=== PATIENT | male | born 1950 | race Caucasian/White ===

== ENCOUNTER 2019-07-20 15:51 | Emergency (ER) | payer OTHER ==
[2019-07-20] MEDS ORDERED: Aspirin 81 mg CHEW TAB* 81 MG TAB.CHEW PO ONE (16:28)
--- NOTE | 2019-07-20 16:32 | UC ---
Cardiac HPI - HPI Summary HPI Summary: 69-year-old male comes in with a chief complaint of chest pain and shortness of breath. Patient woke around 1:30 in the morning he had pressure substernal felt like someone was sitting on his chest. He was able to fall back asleep. He woke up feeling tired and short of breath. During the chest pain he had shortness of breath but no nausea or vomiting or sweating. With the chest pressure he also had some epigastric pain. He does have hypertension. No prior history of any heart attacks. Since he's been awake displacement feeling short of breath he's been having wheezing. - History of Current Complaint Chief Complaint: UCRespiratory Stated Complaint: SOB Time Seen by Provider: 07/20/19 15:57 Pain Intensity: 6 - Allergy/Home Medications Allergies/Adverse Reactions: Allergies Allergy/AdvReac Type Severity Reaction Status Date / Time morphine AdvReac Intermediate Unknown Verified 07/20/19 16:01 Reaction Details Home Medications: Home Medications Alendronate Sodium 70 mg PO WEEKLY 07/20/19 [History Confirmed 07/20/19] Ketoconazole 120 ml TP Q72HR 07/20/19 [History Confirmed 07/20/19] Ketoconazole 2 % CREAM (NF) [Nizoral 2% CREAM (NF)] 1 applic TOPICAL DAILY PRN 07/20/19 [History Confirmed 07/20/19] Omeprazole 40 mg PO BID 07/20/19 [History Confirmed 07/20/19] PMH/Surg Hx/FS Hx/Imm Hx Previously Healthy: Yes Cardiovascular History: Hypertension - Surgical History Surgical History: Yes Surgery Procedure, Year, and Place: Partial Parathyroidectomy, Prostatectomy - Family History Known Family History: Positive: None - Social History Alcohol Use: None Substance Use Type: None Smoking Status (MU): Never Smoked Tobacco Review of Systems All Other Systems Reviewed And Are Negative: Yes Constitutional: Positive: Other - SEE HPI Skin: Positive: Negative Eyes: Positive: Negative ENT: Positive: Negative Respiratory: Positive: Shortness Of Breath Cardiovascular: Positive: Chest Pain Gastrointestinal: Positive: Other - SEE HPI Motor: Positive: Negative Neurovascular: Positive: Negative Musculoskeletal: Positive: Negative Neurological: Positive: Negative Psychological: Positive: Negative Is Patient Immunocompromised?: No Physical Exam Triage Information Reviewed: Yes Appearance: Well-Appearing, No Pain Distress, Well-Nourished Vital Signs: Initial Vital Signs Temp 97.4 F 07/20/19 15:53 Pulse 113 07/20/19 15:53 Resp 22 07/20/19 15:53 BP 151/111 07/20/19 15:53 Pulse Ox 94 07/20/19 15:53 Vital Signs Reviewed: Yes Eye Exam: Normal Eyes: Positive: Conjunctiva Clear Neck: Positive: Supple Respiratory: Positive: No respiratory distress, Crackles - B/L Cardiovascular: Positive: Tachycardia Musculoskeletal: Positive: Strength Intact, ROM Intact, No Edema - NO CALF TENDERNESS Neurological: Positive: Alert Psychological: Positive: Age Appropriate Behavior Skin Exam: Normal Diagnostics - EKG Cardiac Rate: Tachycardia - AT 1602 Cardiac Rhythm: Sinus: Normal - 110BPM Ectopy: PVCs, PACs ST Segment: Normal EKG Comparison: No Significant Change - Assessment/Plan Course Of Treatment: I discussed the EKG with the patient. I concern is the patient had a cardiac event the right now he has congestive heart failure. IV was started by nursing patient given aspirin 324 mg by mouth. I did not see any ischemic changes in the EKG. Patient transported to [place] by ambulance. - Clinical Impression Provider Diagnosis: Chest pain, Shortness of breath, Tachycardia Discharge ED - Sign-Out/Discharge Documenting (check all that apply): Patient Departure All imaging exams completed and their final reports reviewed: No Studies - Discharge Plan Condition: Stable Disposition: TRANS HIGHER LVL OF CARE FAC Referrals: No Primary Care Phys,NOPCP [Primary Care Provider] - - Billing Disposition and Condition Condition: STABLE Disposition: Trans Higher Lvl of Care Fac
[2019-07-20 16:45] VITALS: BP 151/100
== END 2019-07-20 16:44 | disposition short-term general hospital (02) ==
LOC: UCCORT 15:51
DX: R06.02 Shortness of breath (principal); R00.0 Tachycardia, unspecified; R07.9 Chest pain, unspecified; I10 Essential (primary) hypertension; Z88.5 Allergy status to narcotic agent
CPT/HCPCS: 93005; 99213; A9270-GY; G0463